=== PATIENT | male | born 1975 | race Caucasian/White ===

== ENCOUNTER 2018-06-22 13:43 | Emergency (ER) | payer MEDICAID ==
[~2018-06-22] VITALS: Ht 175.3 cm; Wt 86.2 kg
[2018-06-22] MEDS ORDERED: KETOROLAC TROMETHAMINE 15 MG INJ IV ONE (14:00)
[2018-06-22] MEDS ORDERED: ONDANSETRON 4 MG/2 ML VIAL IV ONE (14:00)
[2018-06-22] MEDS ORDERED: IV NORMAL SALINE 1000 ML BAG IV ONE ×2 (14:00→15:45)
[2018-06-22] MEDS ORDERED: KETOROLAC TROMETHAMINE 30 MG INJ ONE (14:07)
[2018-06-22] MEDS ORDERED: ONDANSETRON 4 MG/2 ML VIAL ONE (14:11)
[2018-06-22 14:12] LABS: *BILIRUBIN,URIN NEGATIVE (NEGATIVE); *CLARITY,URINE CLEAR (CLEAR); *COLOR,URINE YELLOW (YELLOW); *KETONES,URINE NEGATIVE (NEGATIVE); *PROTEIN,URINE 2+ (NEGATIVE); *UROBILINOGEN,URINE 0.2 E.U./dl (NORMAL); LEUKOCYTE ESTERASE ,URINE NEGATIVE (NEGATIVE); NITRITE, URINE NEGATIVE (NEGATIVE); UGLUCOSE NEGATIVE (NEGATIVE)
[2018-06-22 14:28] LABS: BASOPHILS % (AUTO) 0.5 % (0.0-2.0); EOSINOPHILS # (AUTO) 0.1 K/uL (0.0-0.7); EOSINOPHILS % (AUTO) 1.2 % (0.0-7.0); HEMATOCRIT 47.4 % (36.7-47.1); HEMOGLOBIN 16.7 g/dL (12.5-16.3); LYMPHOCYTES # (AUTO) 1.5 K/uL (20.0-40.0); LYMPHOCYTES % (AUTO) 14.9 % (20.5-51.5); MEAN CORPUSCULAR HEMOGLOBIN 31.8 uug (23.8-33.4); MEAN CORPUSCULAR HGB CONC 35 g/dL (32.5-36.3); MEAN CORPUSCULAR VOLUME 90.1 fL (73.0-96.2); MONOCYTES # (AUTO) 0.8 K/uL (2.0-10.0); NEUTROPHILS # (AUTO) 7.3 K/uL (1.8-8.9); NEUTROPHILS % (AUTO) 75.4 % (38.5-71.5); PLATELET COUNT (AUTO) 232 K/uL (152-348); RED BLOOD CELL COUNT(AUTO) 5.26 MIL/uL (4.06-5.63); WHITE BLOOD COUNT (AUTO) 9.7 K/uL (3.6-10.2)
[2018-06-22 14:35] LABS: *BLOOD, URINE 3+ (NEGATIVE)
[2018-06-22 14:37] LABS: WBC,URINE 0-3 /HPF (0-3)
[2018-06-22 14:37] LABS: CREATININE 1.2 mg/dL (0.6-1.3); POTASSIUM 3.8 mmol/L (3.5-5.1)
[2018-06-22 14:38] LABS: COARSE GRANULAR CASTS,URINE 0-3 /LPF; MUCUS,URINE FEW /LPF (0-FEW); URINE AMORPHOUS URATE FEW /HPF
[2018-06-22 14:49] LABS: BILIRUBIN,DIRECT 0.2 mg/dL (0.0-0.2); BILIRUBIN,TOTAL 1.1 mg/dL (0.2-1.0); TOTAL PROTEIN, SERUM 8.2 g/dL (6.4-8.2)
[2018-06-22] MEDS ORDERED: IOHEXOL 300MG/ML 100 ML INFUS..BTL ONE (16:06)
[2018-06-22] MEDS ORDERED: SWABABLE VALVE TRANSFER SET EA MC ONE (16:06)
[2018-06-22] MEDS ORDERED: IV NORMAL SALINE 250 ML IV ONE (16:06)
[2018-06-22] MEDS ORDERED: NORMAL SALINE FLUSH 10 ML DISP.SYRIN ONE (16:06)
[2018-06-22] MEDS ORDERED: NEOMY/BACITRA/POLYMYXIN B OINT UD PACKET TP ONE (17:00)
--- NOTE | 2018-06-22 18:22 | NUR ---
mse completed, iv d/c'd intact, dr sotomayor evaluated the pt, I then d/c 'd pt home, aci/ct-lab results copies given. pt ambulated w/o diff/took all belongings.
[2018-06-22 18:25] VITALS: BP 133/88
[2018-06-24 11:06] LABS: HEPATITIS A AB, IgM Negative (Negative); HEPATITIS A AB, TOTAL Negative (Negative); HEPATITIS B SURFACE AB Non Reactive (.); HEPATITIS B SURFACE AG Negative (Negative)
[2018-06-26 02:07] LABS: HEPATITIS Be ANTIGEN Negative (Negative)
== END 2018-06-22 18:27 | disposition home or self-care (01) ==
LOC: ER 13:45
DX: R10.9 Unspecified abdominal pain (principal); R94.5 Abnormal results of liver function studies; Z88.1 Allergy status to other antibiotic agents
CPT/HCPCS: 36415; 76770; 83690; 85025; 85730; 86704; 86705; 86706; 86708; 86709; 86803; 87340; 87350; A4663; J1885; J2405; J3490; J7030; J7050; Q9967

== ENCOUNTER 2019-05-16 17:07 | Emergency (ER) | payer MEDICAID ==
[~2019-05-16] VITALS: Ht 177.8 cm; Wt 88.9 kg
[2019-05-16 18:28] LABS: *BILIRUBIN,URIN NEGATIVE (NEGATIVE); *BLOOD, URINE NEGATIVE (NEGATIVE); *CLARITY,URINE CLEAR (CLEAR); *COLOR,URINE LIGHT YELLOW (YELLOW); *KETONES,URINE NEGATIVE (NEGATIVE); *UROBILINOGEN,URINE 0.2 E.U./dl (NORMAL); LEUKOCYTE ESTERASE ,URINE NEGATIVE (NEGATIVE); NITRITE, URINE NEGATIVE (NEGATIVE); UGLUCOSE NEGATIVE (NEGATIVE)
[2019-05-16] MEDS ORDERED: KETOROLAC TROMETHAMINE 60 MG INJ IM ONE ×2 (18:30→18:36)
[2019-05-16 18:36] LABS: BASOPHILS # (AUTO) 0.1 K/uL (0.0-8.0); BASOPHILS % (AUTO) 0.6 % (0.0-2.0); EOSINOPHILS # (AUTO) 0.2 K/uL (0.0-0.7); EOSINOPHILS % (AUTO) 2.2 % (0.0-7.0); HEMATOCRIT 41.8 % (36.7-47.1); HEMOGLOBIN 14.6 g/dL (12.5-16.3); LYMPHOCYTES # (AUTO) 1.6 K/uL (20.0-40.0); LYMPHOCYTES % (AUTO) 19.6 % (20.5-51.5); MEAN CORPUSCULAR HEMOGLOBIN 31.1 uug (23.8-33.4); MEAN CORPUSCULAR HGB CONC 35 g/dL (32.5-36.3); MEAN CORPUSCULAR VOLUME 89.1 fL (73.0-96.2); MONOCYTES # (AUTO) 0.7 K/uL (2.0-10.0); MONOCYTES % (AUTO) 8.6 % (0.0-11.0); NEUTROPHILS # (AUTO) 5.7 K/uL (1.8-8.9); PLATELET COUNT (AUTO) 258 K/uL (152-348); WHITE BLOOD COUNT (AUTO) 8.3 K/uL (3.6-10.2)
[2019-05-16 18:43] LABS: CREATININE 1.3 mg/dL (0.6-1.3); POTASSIUM 4.4 mmol/L (3.5-5.1)
--- NOTE | 2019-05-16 19:03 | NUR ---
Report received from YOLANDA Moran.
--- NOTE | 2019-05-16 19:13 | NUR ---
Called radiology for update for ultrasound. 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
[2019-05-16 19:25] LABS: BILIRUBIN,DIRECT 0.1 mg/dL (0.0-0.2); BILIRUBIN,TOTAL 0.4 mg/dL (0.2-1.0); TOTAL PROTEIN, SERUM 8.3 g/dL (6.4-8.2)
--- NOTE | 2019-05-16 19:29 | NUR ---
movie operator at bed side.
--- NOTE | 2019-05-16 19:46 | NUR ---
Patient discharged to home in stable conditon. Written and verbal after care instructions given. Patient verbalizes understanding of instructions.
== END 2019-05-16 19:48 | disposition home or self-care (01) ==
LOC: ER 17:09
DX: N20.0 Calculus of kidney (principal); R74.0 Nonspecific elevation of levels of transaminase and lactic acid dehydrogenase [LDH]; Z88.1 Allergy status to other antibiotic agents
CPT/HCPCS: 36415; 76770; 80048; 80076; 81001; 85025; 96372; 99284; J1885; A4663

== ENCOUNTER 2020-05-22 19:45 | Emergency (ER) | payer SELFPAY ==
[~2020-05-22] VITALS: Ht 177.8 cm; Wt 90.7 kg
[2020-05-22] MEDS ORDERED: QUET400T PO (19:52)
--- NOTE | 2020-05-22 19:55 | NUR ---
Dr. Wells is at bedside for MSE.
[2020-05-22] MEDS ORDERED: diphenhydrAMINE 25 MG CAP PO ONE ×2 (20:00→20:04)
[2020-05-22] MEDS ORDERED: CEFTRIAXONE 1 G VIAL IM ONE (20:00)
[2020-05-22] MEDS ORDERED: LIDOCAINE HCL 1% 20 ML VIAL ONE (20:03)
[2020-05-22] MEDS ORDERED: CEFTRIAXONE 1 G VIAL ONE (20:04)
[2020-05-22] MEDS ORDERED: TDAP DIPH,PERTUSS,TET VAC/PF 0.5 ML DISP.SYRIN IM ONE ×2 (20:06→20:15)
--- NOTE | 2020-05-22 20:23 | NUR ---
No adverse reaction from Rocephin 1g IM and Adacel VIM vaccine administered to patient. Patient discharged to home in stable condition. Written and verbal after care instructions given. Patient verbalizes understanding of instructions. Stressed follow up with skin doctor as referred by Dr. Wells or return to ER for worsening s/s. Ambulated out of our ER in steady gait.
[2020-05-22 20:24] VITALS: BP 150/100
== END 2020-05-22 20:25 | disposition home or self-care (01) ==
LOC: ER 19:45
DX: S50.861A Insect bite (nonvenomous) of right forearm, initial encounter (principal); S80.862A Insect bite (nonvenomous), left lower leg, initial encounter; S80.861A Insect bite (nonvenomous), right lower leg, initial encounter; S90.862A Insect bite (nonvenomous), left foot, initial encounter; W57.XXXA Bitten or stung by nonvenomous insect and other nonvenomous arthropods, initial encounter; Y92.59 Other trade areas as the place of occurrence of the external cause; F41.9 Anxiety disorder, unspecified; Z88.0 Allergy status to penicillin; Z79.899 Other long term (current) drug therapy; L29.9 Pruritus, unspecified
CPT/HCPCS: 90471; 90715; 96372; 99284; J0696; J3490; Q0163; A4663